=== PATIENT | female | born 1985 | race Caucasian/White ===

== ENCOUNTER 2016-10-12 21:39 | Emergency (ER) | payer OTHER ==
[2016-10-12 21:49] VITALS: BP 119/69
[2016-10-12] MEDS ORDERED: Amoxicillin PO (*) 500 MG CAP PO ONE (22:29)
--- NOTE | 2016-10-12 22:29 | UC ---
Ear Complaint HPI - HPI Summary HPI Summary: 3 DAYS OF COUGH, CONGESTION, ST, LEFT EAR PAIN AND FATIGUE. HAD LOW GRADE TEMP AT HOME TMAX 100. HEARING IS MUTED OUT OF LEFT EAR. - History of Current Complaint Chief Complaint: UCGeneralIllness Stated Complaint: COLD,COUGH,EAR PAIN Time Seen by Provider: 10/12/16 22:13 Hx Obtained From: Patient Hx Last Menstrual Period: 06/09/16, continuous cycle control pills Onset/Duration: Gradual Onset, Lasting Days, Still Present Severity Initially: Moderate Severity Currently: Moderate Pain Intensity: 8 Pain Scale Used: 0-10 Numeric Aggravating Factors: Nothing Alleviating Factors: Nothing Associated Signs/Symptoms: Positive: Hearing Loss, URI Symptoms. Negative: Discharge - Allergies/Home Medications Allergies/Adverse Reactions: Allergies Allergy/AdvReac Type Severity Reaction Status Date / Time Nickel Allergy Severe RED, Verified 10/12/16 21:49 ITCHY, BUMPY SKIN Home Medications: Home Medications buPROPion TAB* [Wellbutrin TAB*] 75 mg PO DAILY 10/12/16 [History Confirmed 06/23] PMH/Surg Hx/FS Hx/Imm Hx Previously Healthy: Yes - Surgical History Surgical History: Yes Surgery Procedure, Year, and Place: CERVICAL BIOPSY - Family History Known Family History: Negative: Blood Disorder - Social History Alcohol Use: Occasionally Substance Use Type: None Smoking Status (MU): Heavy Every Day Tobacco Smoker Amount Used/How Often: 1/2 - 1 PPD Review of Systems Constitutional: Fever, Chills, Fatigue ENT: Sore Throat, Ear Ache, Nasal Discharge Respiratory: Cough Cardiovascular: Negative Gastrointestinal: Negative All Other Systems Reviewed And Are Negative: Yes Physical Exam Triage Information Reviewed: Yes Appearance: Well-Appearing, No Pain Distress, Well-Nourished Vital Signs: Initial Vital Signs Temp 98.6 F 10/12/16 21:46 Pulse 87 10/12/16 21:46 Resp 16 10/12/16 21:46 BP 119/69 10/12/16 21:46 Pulse Ox 98 10/12/16 21:46 Vital Signs Reviewed: Yes Eyes: Positive: Conjunctiva Clear ENT: Positive: Hearing grossly normal, Pharynx normal, Nasal congestion, Other: - LEFT TM RETRACTED, SLIGHTLY ERYTHEMATOUS. RIGHT TM NORMAL Neck: Positive: Supple, Nontender, No Lymphadenopathy Respiratory Exam: Normal Cardiovascular Exam: Normal Abdomen Description: Positive: Soft Musculoskeletal: Positive: No Edema Neurological: Positive: Alert Psychological: Positive: Age Appropriate Behavior Skin: Negative: rashes Ear Complaint Course/Dx - Differential Dx/Diagnosis Provider Diagnoses: LEFT EAR PAIN/ACUTE URI Discharge - Discharge Plan Condition: Stable Disposition: HOME Prescriptions: Amoxicillin PO (*) [Amoxicillin 500 MG CAP*] 1,000 mg PO Q12H #26 cap Patient Education Materials: Upper Respiratory Infection (ED), Earache (ED) Referrals: Pablo Macias MD [Primary Care Provider] - If Needed Additional Instructions: YOU MAY HAVE A VIRAL ILLNESS THAT WILL RESOLVE ON IT'S OWN IN THE NEXT WEEK OR SO. YOUR LEFT EAR DRUM IS RETRACTED AND VERY SLIGHTLY RED - YOU MAY BE DEVELOPING A LEFT SIDED EAR INFECTION. GIVEN YOUR SYMPTOMS WILL COVER WITH AMOXICILLIN. TAKE FOR THE FULL 7 DAY COURSE.
== END 2016-10-12 22:40 | disposition home or self-care (01) ==
LOC: UCEAST 21:39
DX: H92.02 Otalgia, left ear (principal); J06.9 Acute upper respiratory infection, unspecified; F17.210 Nicotine dependence, cigarettes, uncomplicated
CPT/HCPCS: 99212; A9270-GY; G0463

== ENCOUNTER 2016-10-29 06:23 | Day surgery (SDC) | payer OTHER ==
[~2016-10-29 06:23] MED LIST: Buffered Lidocaine 0.9% SYRIN* 5 ML/SYR SYRINGE INTRADERM ONE; Famotidine IV* 10 MG/ML 2 ML (20 mg) IV ONE; Metoclopramide TAB* 10 MG PO ONE
[2016-10-29] MEDS ORDERED: Famotidine IV* 10 MG/ML 2 ML (20 mg) ONE (06:45)
[2016-10-29] MEDS ORDERED: Metoclopramide TAB* 10 MG ONE (06:45)
[2016-10-29] MEDS ORDERED: Buffered Lidocaine 0.9% SYRIN* 5 ML/SYR SYRINGE ONE (06:46)
[2016-10-29] MEDS ORDERED: Bupivacaine 0.25% SDV* 30 ML ONE (07:06)
[2016-10-29] MEDS ORDERED: Dexamethasone IV* 4 MG/ML 1 ML (4 MG) ONE (07:23)
[2016-10-29] MEDS ORDERED: fentaNYL* 50 MCG/ML 2 ML VIAL (100 MCG VIAL) ONE ×2 (07:23→09:00)
[2016-10-29] MEDS ORDERED: Ondansetron INJ* 2 MG/ML VIAL ONE ×2 (07:23→08:58)
[2016-10-29] MEDS ORDERED: Propofol* 10 MG/ML 20 ML BTL IV PUSH ONE (07:23)
[2016-10-29] MEDS ORDERED: Lidocaine 2% PF * 5 ML VIAL ONE (07:23)
[2016-10-29] MEDS ORDERED: Mivacurium Chloride* 20 MG/10 ML VIAL IV ONE (07:23)
[2016-10-29] MEDS ORDERED: Ketorolac INJ* 30 MG/ML 1 ML VIAL ONE (07:23)
[2016-10-29] MEDS ORDERED: KETAMINE HCL* 50 MG/ML 10 ML VIAL ONE (07:23)
[2016-10-29] MEDS ORDERED: Midazolam* 1 MG/ML 5 ML VIAL (5 MG) ONE (07:23)
[2016-10-29 07:27] LABS: Hematocrit 39 % (35-47); Hemoglobin 12.7 g/dl (12.0-16.0); Mean Corpuscular HGB Conc 33 g/dl (31-36); Mean Corpuscular Hemoglobin 32 pg (27-31); Mean Corpuscular Volume 96 fL (80-97); Mean Platelet Volume 9 um3 (7.4-10.4); Red Blood Count 4.03 10^6/ul (4.0-5.4); Red Cell Distribution Width 13 % (10.5-15); White Blood Count 5.2 10^3/ul (3.5-10.8)
[2016-10-29] MEDS ORDERED: EPHEDrine (Pressors)* 50 MG/ML VIAL ONE (08:00)
[2016-10-29] MEDS ORDERED: Ondansetron INJ* 2 MG/ML VIAL IV PRN (08:35)
[2016-10-29] MEDS ORDERED: fentaNYL* 50 MCG/ML 2 ML VIAL (100 MCG VIAL) IV PRN (08:35)
[2016-10-29] MEDS ORDERED: oxyCODONE/Acetamin 5/325 MG* TAB PO PRN (08:35)
[2016-10-29] MEDS ORDERED: oxyCODONE/Acetamin 5/325 MG* TAB ONE (09:34)
[2016-10-29 12:00] VITALS: BP 138/89
--- NOTE | 2016-10-31 01:54 | OP ---
OPERATIVE REPORT: DATE OF OPERATION: 10/29/16 DATE OF : 87 SURGEON: Nataly Ahumada MD ANESTHESIOLOGIST: Wilfredo Jones MD ANESTHESIA: General endotracheal. PRE-OP DIAGNOSIS: Satisfied parity. POST-OP DIAGNOSIS: Satisfied parity. OPERATIVE PROCEDURE: Laparoscopic bilateral tubal ligation with Filshie clips. INDICATIONS: The patient is a 31-year-old, 2, para 1, who presented to the office desiring permanent sterilization. She was extensively counseled regarding long-term contraception versus permanent sterilization options and she desired to proceed with permanent sterilization with tubal ligation. She also opted for Filshie clips. She was extensively counseled and consent was signed. ESTIMATED BLOOD LOSS: Minimal. URINE OUTPUT: 30 cc. IV FLUIDS: 1300 cc lactated Ringer's. MATERIALS TO LAB: None. FINDINGS: Normal-appearing uterus, fallopian tubes, ovaries, and appendix. COMPLICATIONS: None. DESCRIPTION OF PROCEDURE: The risks, benefits, and alternatives were described to the patient, and informed consent was obtained. The patient was taken to the operating room with IV running where general anesthesia was induced and found to be adequate. The patient was prepped and draped in the normal sterile fashion in the low lithotomy position in [facility]. A time-out was performed. The bladder was emptied. A bivalve speculum was placed in the vagina and a Hulka tenaculum was placed through the cervix into the uterus. The speculum was then removed. Attention was then turned to the abdomen. 0.25% Marcaine was then injected into the skin of the umbilicus as well as 2-cm above the pubic symphysis. A 5 mm skin incision was made with a scalpel in the umbilicus. A 5mm bladeless trocar was then inserted through the incision and into the peritoneal cavity without difficulty. The skin was elevated using penetrating towel clamps. Once the trocar was in the abdominal cavity, the abdomen was insufflated with carbon dioxide gas to a maximum pressure of 15 mmHg. Using the camera, the area below the trocar placement was carefully inspected and there was no evidence of trauma or bleeding. The patient was placed in the Trendelenburg position. A second incision about 8 mm in length was placed 2-3 cm above the pubic symphysis in a transverse fashion. An 8-mm blunt trocar was also placed through this incision and into the abdominal cavity without difficulty. Using the Hulka tenaculum for manipulation, the uterus was elevated and well visualized. The structures appeared normal. Filshie clips were prepared. A Filshie clip was then placed on the patient's right fallopian tube in the mid isthmic portion without difficulty. The same was then performed on the patient's left side, again without difficulty and with excellent hemostasis. Both clips were placed perpendicular to the axis of the tube. The case was then completed. The trocars were removed from the abdomen and the gas was allowed to escape. The skin was reapproximated using 4- 0 Monocryl in a subcuticular stitch, and the incisions were then overlaid with Dermaflex skin adhesive. The tenaculum was then removed from the cervix as well , and there was only light bleeding from the vagina at that time. The patient was returned to the supine position and allowed to awaken. The patient tolerated the procedure well. Sponge, lap, and needle counts were correct x2. [id number]/[facility] #: [id number] [facility] HOSPITALLawrence
== END 2016-10-29 10:53 | disposition home or self-care (01) ==
LOC: OR 06:23
PROVIDERS: ATTEND Obstetrics & Gynecology
DX: Z30.2 Encounter for sterilization (principal); Z87.891 Personal history of nicotine dependence
CPT/HCPCS: 36415; 81025; 85027; 86850; 86900; 86901; A9270-GY; C1776; J1100; J1885; J2250; J2405; J2704; J3010

== ENCOUNTER 2018-04-26 07:23 | Emergency (ER) | payer OTHER ==
[2018-04-26 07:31] VITALS: BP 115/78
--- NOTE | 2018-04-26 07:49 | ED ---
Laceration/Wound HPI - HPI Summary HPI Summary: 33 yo WF c/o left 4th and 5th finger lacerations after slipping and dropping a 40 gallon reptile tank onto her fingers, bleeding stopped, Tdap UTD-<5yrs ago - History of Current Complaint Stated Complaint: FINGER INJURY Time Seen by Provider: 04/26/18 07:43 Hx Obtained From: Patient Hx Last Menstrual Period: Onset/Duration: Sudden Onset Aggravating: Movement Alleviating: Nothing Timing: Constant Onset Severity: Mild Pain Intensity: 2 - Allergy/Home Medications Allergies/Adverse Reactions: Allergies Allergy/AdvReac Type Severity Reaction Status Date / Time nickel Allergy Severe Rash Verified 04/26/18 07:32 adhesive tape Allergy Rash Verified 04/26/18 07:32 PMH/Surg Hx/FS Hx/Imm Hx Previously Healthy: Yes Endocrine/Hematology History: Denies: Hx Diabetes, Hx Thyroid Disease Cardiovascular History: Denies: Hx Congestive Heart Failure, Hx Hypertension Respiratory History: Denies: Hx Asthma, Hx Chronic Obstructive Pulmonary Disease (COPD) GI History: Denies: Hx Ulcer History: Denies: Hx Renal Disease Sensory History: Denies: Hx Contacts or Glasses, Hx Hearing Aid Opthamlomology History: Denies: Hx Contacts or Glasses - Cancer History Cancer Type, 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 Hx Chemotherapy: No Hx Radiation Therapy: No - Surgical History Surgery Procedure, Year, and Place: CERVICAL BIOPSY Hx Anesthesia Reactions: No Infectious Disease History: No Infectious Disease History: Denies: Hx Hepatitis, Hx Human Immunodeficiency Virus (HIV), Traveled Outside the [place] in Last 30 Days - Family History Known Family History: Negative: Blood Disorder - Social History Alcohol Use: Occasionally Substance Use Type: Reports: None Smoking Status (MU): Heavy Every Day Tobacco Smoker Amount Used/How Often: 1/2 PPD Review of Systems Constitutional: Negative Eyes: Negative ENT: Negative Cardiovascular: Negative Respiratory: Negative Gastrointestinal: Negative Genitourinary: Negative Musculoskeletal: Negative Skin: Other - SEE HPI Neurological: Negative Psychological: Normal All Other Systems Reviewed And Are Negative: Yes Physical Exam - Summary Physical Exam Summary: Triage Information Reviewed: Yes Appearance: No Pain Distress Eye Exam: Normal ENT Exam: Normal ENT: Positive: Normal ENT inspection Neck: Positive: Supple Respiratory: Positive: Lungs clear, Normal breath sounds Cardiovascular: Positive: RRR, S1, S2 Abdominal Exam: Normal Musculoskeletal Exam: Normal Neurological Exam: Normal Psychological Exam: Normal Skin Exam: 4th and 5th distal finger pad laceration, 1cm each, skin flap intact Vital Signs On Initial Exam: Initial Vitals Temp Pulse Resp BP Pulse Ox 36.4 C 53 18 115/78 100 04/26/18 07:27 04/26/18 07:27 04/26/18 07:27 04/26/18 07:27 04/26/18 07:27 Diagnostics - Vital Signs Vital Signs Temp Pulse Resp BP Pulse Ox 04/26/18 07:27 36.4 C 53 18 115/78 100 - Laboratory Lab Statement: Any lab studies that have been ordered have been reviewed, and results considered in the medical decision making process. Laceration Repair Course/Dx - Course Assessment/Plan: Left 4th and 5th finger laceration - dermabonded wiht good skin approximation - Clinical Impression Provider Diagnoses: Laceration of finger of left hand Discharge - Sign-Out/Discharge Documenting (check all that apply): Patient Departure All imaging exams completed and their final reports reviewed: No Studies - Discharge Plan Condition: Stable Disposition: HOME Prescriptions: Cephalexin CAP* [Keflex CAP*] 500 mg PO TID 7 Days #21 cap Referrals: Pablo Macias MD [Primary Care Provider] - - Billing Disposition and Condition Condition: STABLE Disposition: Home
== END 2018-04-26 09:03 | disposition home or self-care (01) ==
LOC: UCEAST 07:23
DX: S61.215A Laceration without foreign body of left ring finger without damage to nail, initial encounter (principal); S61.217A Laceration without foreign body of left little finger without damage to nail, initial encounter; W20.8XXA Other cause of strike by thrown, projected or falling object, initial encounter; Y92.9 Unspecified place or not applicable; F17.200 Nicotine dependence, unspecified, uncomplicated; Z91.09 Other allergy status, other than to drugs and biological substances
CPT/HCPCS: 12001; 99212; G0463

== ENCOUNTER 2018-08-21 10:32 | Emergency (ER) | payer OTHER ==
[2018-08-21 11:04] VITALS: BP 102/61
--- NOTE | 2018-08-21 11:06 | UC ---
Skin Complaint HPI - HPI Summary HPI Summary: 33 yo female presents with red itchy rash. She tells me that over the last week she has been noticing quarter size red and itchy circular areas on her chest and thighs. She thinks this is ringworm and has been applying OTC topical terbinafine BID for the last 3 days with no change. She is unsure where she got this from, but states that she does do a lot of weight lifting and goes to the gym often. She is feeing well otherwise and denies fever, chills, recent illness. - History of Current Complaint Chief Complaint: UCRash Time Seen by Provider: 08/21/18 11:04 Stated Complaint: SKIN ISSUE Hx Obtained From: Patient Hx Last Menstrual Period: 08/03/18 Onset/Duration: Gradual Onset Current Severity: None Pain Intensity: 0 - Allergy/Home Medications Allergies/Adverse Reactions: Allergies Allergy/AdvReac Type Severity Reaction Status Date / Time nickel Allergy Severe Rash Verified 08/21/18 11:04 adhesive tape Allergy Rash Verified 08/21/18 11:04 Home Medications: Home Medications Terbinafine HCl [Athletes Foot AF Cream] 1 % EX BID 08/21/18 [History Confirmed 08/21/18] PMH/Surg Hx/FS Hx/Imm Hx - Additional Past Medical History Additional PMH: None - Surgical History Surgical History: Yes Surgery Procedure, Year, and Place: CERVICAL BIOPSY - Family History Known Family History: Negative: Blood Disorder - Social History Lives: With Family Alcohol Use: Weekly Substance Use Type: None Smoking Status (MU): Heavy Every Day Tobacco Smoker Amount Used/How Often: 1/2 PPD When Did the Patient Quit Smoking/Using Tobacco: 2 weeks ago 10/2016 Household Exposure Type: Cigarettes Review of Systems All Other Systems Reviewed And Are Negative: Yes Constitutional: Positive: Negative Skin: Positive: Rash Respiratory: Positive: Negative Cardiovascular: Positive: Negative Neurovascular: Positive: Negative Neurological: Positive: Negative Psychological: Positive: Negative Physical Exam - Summary Physical Exam Summary: GENERAL: NAD. WDWN. No pain distress. SKIN: CHEST: Three quarter sized erythematous rings with scaly appearance. No open wound, drainage, streaking, or bug bite. Similar appearing lesion on left upper thigh. NECK: Supple. Nontender. No lymphadenopathy. CHEST: No accessory muscle use. Breathing comfortably and in no distress. CV: Pulses intact. Cap refill <2seconds NEURO: Alert. PSYCH: Age appropriate behavior. Triage Information Reviewed: Yes Vital Signs: Initial Vital Signs Temp 99.0 F 08/21/18 10:59 Pulse 67 08/21/18 10:59 Resp 18 08/21/18 10:59 BP 102/61 08/21/18 10:59 Pulse Ox 100 08/21/18 10:59 Vital Signs Reviewed: Yes Course/Dx - Course Course Of Treatment: Suspect tinea. Will have her try ketoconazole cream and will place her on po terbinafine. I discussed with her that oral terbinafine will likely not be covered by insurance and she will likely have to see dermatology if the cream does not improve her symptoms within 7-10days - Diagnoses Provider Diagnosis: Tinea corporis Discharge - Sign-Out/Discharge Documenting (check all that apply): Patient Departure All imaging exams completed and their final reports reviewed: No Studies - Discharge Plan Condition: Stable Disposition: HOME Prescriptions: Ketoconazole 2 % CREAM (NF) [Nizoral 2% CREAM (NF)] 1 applic TOPICAL BID #1 tube Terbinafine HCl 250 mg PO DAILY #7 tablet Patient Education Materials: Tinea Corporis (ED) Referrals: Pablo Macias MD [Primary Care Provider] - Jacky Abraham MD [Medical Doctor] - As Soon As Possible Additional Instructions: If you develop a fever, shortness of breath, chest pain, new or worsening symptoms - please call your PCP or go to the ED immediately. 1) I recommend that you schedule an appointment with dermatology in 1-2 weeks for a recheck of your ringworm - Billing Disposition and Condition Condition: STABLE Disposition: Home
== END 2018-08-21 11:30 | disposition home or self-care (01) ==
LOC: UCEAST 10:32
DX: B35.4 Tinea corporis (principal); F17.210 Nicotine dependence, cigarettes, uncomplicated
CPT/HCPCS: 99212; G0463